=== PATIENT | female | born 1955 | race Caucasian/White ===

== ENCOUNTER 2018-02-17 15:51 | Inpatient (IN) | payer MEDICARE, OTHER ==
[2018-02-17 21:16] LABS: ADD MAN DIFF? NO
[2018-02-17 21:20] LABS: WHITE BLOOD COUNT 5.3 10^3/ul (4.8-10.8)
[2018-02-17 21:20] LABS: ABNORMAL IP MESSAGE 1; BASOPHILS % 0.6 % (0.0-2.0); EOSINOPHILS # 0.2 10^3/ul (0.0-0.5); EOSINOPHILS % 3.4 % (0.0-7.0); HEMATOCRIT 31.3 % (37.0-47.0); HEMOGLOBIN 8.5 g/dl (12.0-16.0); LYMPHOCYTES # 0.8 10^3/ul (0.8-2.9); LYMPHOCYTES % 14.9 % (15.0-51.0); MEAN CORPUSCULAR HEMOGLOBIN 21.9 pg (29.0-33.0); MEAN CORPUSCULAR HGB CONC 27.2 g/dl (32.0-37.0); MEAN CORPUSCULAR VOLUME 80.7 fl (82.0-101.0); MEAN PLATELET VOLUME 7.9 fl (7.4-10.4); MONOCYTE # 0.3 10^3/ul (0.3-0.9); NEUTROPHILS % 75.7 % (39.0-77.0); PLATELET COUNT 263 10^3/UL (140-415); RED BLOOD COUNT 3.88 10^6/ul (4.20-5.40); RED CELL DISTRIBUTION WIDTH 18.2 % (11.5-14.5)
[2018-02-17 21:27] LABS: POSITIVE DIFF @See below
[2018-02-17] MEDS: SOD CHLORIDE 0.9% 1,000 ML IV (21:27)
[2018-02-17] MEDS: KETOROLAC 15 MG INJ IV (21:27)
[2018-02-17 21:34] LABS: ALANINE AMINOTRANSFERASE 12 IU/L (13-69); ALBUMIN 3.5 g/dl (3.3-4.9); ALBUMIN/GLOBULIN RATIO 0.89; ALKALINE PHOSPHATASE 169 IU/L (42-121); ANION GAP 14 (5-13); ASPARTATE AMINO TRANSFERASE 25 IU/L (15-46); BILIRUBIN,INDIRECT 0.1 mg/dl (0-1.1); BILIRUBIN,TOTAL 0.1 mg/dl (0.2-1.3); BLOOD UREA NITROGEN 9 mg/dl (7-20); CARBON DIOXIDE 26 mmol/L (21-31); CHLORIDE 104 mmol/L (97-110); CREATININE 0.74 mg/dl (0.44-1.00); Estimated GFR > 60 mL/min (>60); GLUCOSE 104 mg/dl (70-220); LIPASE 70 U/L (23-300); POTASSIUM 4.2 mmol/L (3.5-5.1); SODIUM 144 mmol/L (135-144); TOTAL PROTEIN 7.4 g/dl (6.1-8.1)
[2018-02-17 21:46] LABS: B-TYPE NATRIURETIC PEPTIDE 1730 PG/ML (0-125); TROPONIN-I 0.015 ng/ml (0.000-0.120)
[2018-02-17] MEDS: CEFEPIME 1GM/50 ML (PMX) 50 ML IVPB (22:24)
[2018-02-17 22:38] LABS: ADD UMIC YES; UR ASCORBIC ACID NEGATIVE (NEGATIVE); UR BILIRUBIN (Dip) NEGATIVE (NEGATIVE); UR BLOOD (Dip) NEGATIVE (NEGATIVE); UR CLARITY CLEAR (CLEAR); UR COLOR YELLOW (YELLOW); UR GLUCOSE (Dip) NEGATIVE (NEGATIVE); UR KETONES (Dip) NEGATIVE (NEGATIVE); UR LEUKOCYTE ESTERASE (Dip) NEGATIVE Leu/ul (NEGATIVE); UR MUCUS FEW /HPF (NONE SEEN); UR NITRITE (Dip) NEGATIVE (NEGATIVE); UR RBC 1 /HPF (0-5); UR SPECIFIC GRAVITY (Dip) 1.015 (1.003-1.030); UR TOTAL PROTEIN (Dip) 1+ mg/dl (NEGATIVE); UR UROBILINOGEN (Dip) NEGATIVE (NEGATIVE); UR WBC 5 /HPF (0-5)
[2018-02-17] MEDS: VANCOMYCIN 1 GM (PMX) 250 ML IVPB (23:03)
[2018-02-18] MEDS ORDERED: DOCUSATE SODIUM 100 MG CAP PO (00:30)
[2018-02-18] MEDS ORDERED: ONDANSETRON 4 MG INJ IV (00:30)
[2018-02-18] MEDS ORDERED: VANCOMYCIN IV PER PHARMACY XX (00:30)
[2018-02-18] MEDS ORDERED: BISACODYL (EC) 5 MG TAB PO (00:30)
[2018-02-18] MEDS ORDERED: NACL 0.9% 3 ML SYG IV (00:30)
[2018-02-18] MEDS: SOD CHLORIDE 0.9% 500 ML IV (02:51)
[2018-02-18] MEDS: PIPER-TAZO 3.375 GM IV (PMX) 100 ML IVPB ×2 (06:09→13:00)
[2018-02-18 07:27] LABS: ADD MAN DIFF? NO
[2018-02-18 07:31] LABS: ABNORMAL IP MESSAGE 1; BASOPHILS % 0.5 % (0.0-2.0); EOSINOPHILS # 0.2 10^3/ul (0.0-0.5); EOSINOPHILS % 5.2 % (0.0-7.0); HEMATOCRIT 27.3 % (37.0-47.0); HEMOGLOBIN 7.4 g/dl (12.0-16.0); LYMPHOCYTES # 0.8 10^3/ul (0.8-2.9); LYMPHOCYTES % 21.5 % (15.0-51.0); MEAN CORPUSCULAR HEMOGLOBIN 22.2 pg (29.0-33.0); MEAN CORPUSCULAR HGB CONC 27.1 g/dl (32.0-37.0); MEAN CORPUSCULAR VOLUME 81.7 fl (82.0-101.0); MEAN PLATELET VOLUME 8.4 fl (7.4-10.4); MONOCYTE # 0.2 10^3/ul (0.3-0.9); MONOCYTES % 5.2 % (0.0-11.0); NEUTROPHIL # 2.5 10^3/ul (1.6-7.5); NEUTROPHILS % 67.3 % (39.0-77.0); PLATELET COUNT 247 10^3/UL (140-415); RED BLOOD COUNT 3.34 10^6/ul (4.20-5.40); RED CELL DISTRIBUTION WIDTH 18.4 % (11.5-14.5)
[2018-02-18 07:31] LABS: WHITE BLOOD COUNT 3.7 10^3/ul (4.8-10.8)
[2018-02-18 07:46] LABS: POSITIVE DIFF @See below
[2018-02-18 07:57] LABS: IRON 21 ug/dl (35-150)
[2018-02-18 08:06] LABS: % IRON SATURATION 9 % SAT (22-52); TOTAL IRON BINDING CAPACITY 231 ug/dl (241-421)
[2018-02-18 08:08] LABS: ALANINE AMINOTRANSFERASE 15 IU/L (13-69); ALBUMIN 2.8 g/dl (3.3-4.9); ALBUMIN/GLOBULIN RATIO 0.77; ALKALINE PHOSPHATASE 132 IU/L (42-121); ANION GAP 7 (5-13); ASPARTATE AMINO TRANSFERASE 22 IU/L (15-46); BILIRUBIN,INDIRECT 0.2 mg/dl (0-1.1); BILIRUBIN,TOTAL 0.2 mg/dl (0.2-1.3); BLOOD UREA NITROGEN 7 mg/dl (7-20); CALCIUM 8.3 mg/dl (8.4-10.2); CARBON DIOXIDE 22 mmol/L (21-31); CHLORIDE 111 mmol/L (97-110); CHOL/HDL RATIO 3.2 RATIO; CHOLESTEROL 79 mg/dl (100-200); CREATININE 0.66 mg/dl (0.44-1.00); Estimated GFR > 60 mL/min (>60); GLUCOSE 81 mg/dl (70-220); HDL CHOLESTEROL 24 mg/dl (35-98); LDL CHOLESTEROL,CALCULATED 43 mg/dl; MAGNESIUM 1.8 mg/dl (1.7-2.5); POTASSIUM 3.9 mmol/L (3.5-5.1); SODIUM 140 mmol/L (135-144); TOTAL PROTEIN 6.4 g/dl (6.1-8.1); TRIGLYCERIDES 61 mg/dl (0-149)
[2018-02-18 10:06] LABS: HEMOGLOBIN A1C 5.4 % (0-5.9)
[2018-02-18] MEDS: ACETAMINOPHEN 325 MG TAB PO (12:57)
[2018-02-18] MEDS ORDERED: VANCOMYCIN 1 GM 250 ML IVPB (23:00)
[2018-02-19] MEDS: IBUPROFEN 200 MG TAB PO ×4 (03:26→19:59)
[2018-02-19 11:05] LABS: ADD MAN DIFF? NO
[2018-02-19 11:12] LABS: WHITE BLOOD COUNT 4.7 10^3/ul (4.8-10.8)
[2018-02-19 11:12] LABS: ABNORMAL IP MESSAGE 1; BASOPHILS % 0.6 % (0.0-2.0); EOSINOPHILS # 0.2 10^3/ul (0.0-0.5); EOSINOPHILS % 5.1 % (0.0-7.0); HEMATOCRIT 26.4 % (37.0-47.0); HEMOGLOBIN 7.2 g/dl (12.0-16.0); LYMPHOCYTES # 0.7 10^3/ul (0.8-2.9); LYMPHOCYTES % 15.3 % (15.0-51.0); MEAN CORPUSCULAR HEMOGLOBIN 21.9 pg (29.0-33.0); MEAN CORPUSCULAR HGB CONC 27.3 g/dl (32.0-37.0); MEAN CORPUSCULAR VOLUME 80.2 fl (82.0-101.0); MEAN PLATELET VOLUME 7.9 fl (7.4-10.4); MONOCYTE # 0.3 10^3/ul (0.3-0.9); NEUTROPHIL # 3.4 10^3/ul (1.6-7.5); NEUTROPHILS % 71.6 % (39.0-77.0); PLATELET COUNT 237 10^3/UL (140-415); RED BLOOD COUNT 3.29 10^6/ul (4.20-5.40); RED CELL DISTRIBUTION WIDTH 18.5 % (11.5-14.5)
[2018-02-19 11:15] LABS: POSITIVE DIFF @See below
[2018-02-19 11:47] LABS: ALANINE AMINOTRANSFERASE 17 IU/L (13-69); ALBUMIN 2.5 g/dl (3.3-4.9); ALBUMIN/GLOBULIN RATIO 0.86; ALKALINE PHOSPHATASE 107 IU/L (42-121); ANION GAP 8 (5-13); ASPARTATE AMINO TRANSFERASE 17 IU/L (15-46); BILIRUBIN,INDIRECT 0.1 mg/dl (0-1.1); BILIRUBIN,TOTAL 0.1 mg/dl (0.2-1.3); BLOOD UREA NITROGEN 9 mg/dl (7-20); CALCIUM 8.3 mg/dl (8.4-10.2); CARBON DIOXIDE 26 mmol/L (21-31); CHLORIDE 106 mmol/L (97-110); CREATININE 0.65 mg/dl (0.44-1.00); Estimated GFR > 60 mL/min (>60); GLUCOSE 92 mg/dl (70-220); MAGNESIUM 1.7 mg/dl (1.7-2.5); PHOSPHORUS 3.8 mg/dl (2.5-4.9); POTASSIUM 3.9 mmol/L (3.5-5.1); SODIUM 140 mmol/L (135-144); TOTAL PROTEIN 5.4 g/dl (6.1-8.1)
[2018-02-19] MEDS: BALSAM PERU/CASTOR OIL 60 GM TUBE TOP ×2 (21:55)
[2018-02-20] MEDS: ACETAMINOPHEN 325 MG TAB PO (06:44)
[2018-02-20] MEDS: BALSAM PERU/CASTOR OIL 60 GM TUBE TOP (09:27)
[2018-02-20] MEDS: IBUPROFEN 200 MG TAB PO (14:27)
== END 2018-02-20 17:35 | DRG 178 ==
LOC: E/R 15:51 → TEL 22:13 → MS1 02-18 21:38
DX: J86.0 Pyothorax with fistula (principal); J90 Pleural effusion, not elsewhere classified; M06.9 Rheumatoid arthritis, unspecified; M81.0 Age-related osteoporosis without current pathological fracture; D64.9 Anemia, unspecified; F32.89 Other specified depressive episodes
CPT/HCPCS: 36415; 71045; 71250; 80053; 80061; 81001; 82728; 83036; 83540; 83690; 83735; 83880; 84100; 84443; 84484; 85025; 87070; 87081; 93005; 93306; 96361; 96374; 97162; 99285-25